=== PATIENT | male | born 1960 | race Caucasian/White ===

== ENCOUNTER 2017-10-27 10:04 | Inpatient (IN) | payer OTHER ==
[2017-10-27 10:59] LABS: ADD MAN DIFF? NO
[2017-10-27 11:04] LABS: BASOPHILS % 0.6 % (0.0-2.0); EOSINOPHILS # 0.1 10^3/ul (0.0-0.5); EOSINOPHILS % 1.1 % (0.0-7.0); HEMATOCRIT 41.3 % (42.0-52.0); HEMOGLOBIN 13.9 g/dl (14.0-18.0); LYMPHOCYTES # 1.4 10^3/ul (0.8-2.9); LYMPHOCYTES % 25.4 % (15.0-51.0); MEAN CORPUSCULAR HGB CONC 33.7 g/dl (32.0-37.0); MONOCYTE # 0.5 10^3/ul (0.3-0.9); MONOCYTES % 8.5 % (0.0-11.0); NEUTROPHIL # 3.5 10^3/ul (1.6-7.5); NEUTROPHILS % 64.2 % (39.0-77.0); PLATELET COUNT 194 10^3/UL (140-415); RED BLOOD COUNT 4.49 10^6/ul (4.70-6.10); RED CELL DISTRIBUTION WIDTH 12.7 % (11.5-14.5)
[2017-10-27 11:04] LABS: WHITE BLOOD COUNT 5.4 10^3/ul (4.8-10.8)
[2017-10-27 11:06] LABS: ADD UMIC NO; UR ASCORBIC ACID 20 mg/dL (NEGATIVE); UR BILIRUBIN (Dip) NEGATIVE (NEGATIVE); UR BLOOD (Dip) NEGATIVE (NEGATIVE); UR CLARITY CLEAR (CLEAR); UR COLOR YELLOW (YELLOW); UR GLUCOSE (Dip) NEGATIVE (NEGATIVE); UR KETONES (Dip) NEGATIVE (NEGATIVE); UR LEUKOCYTE ESTERASE (Dip) NEGATIVE Leu/ul (NEGATIVE); UR NITRITE (Dip) NEGATIVE (NEGATIVE); UR SPECIFIC GRAVITY (Dip) 1.015 (1.003-1.030); UR TOTAL PROTEIN (Dip) NEGATIVE (NEGATIVE); UR UROBILINOGEN (Dip) NEGATIVE (NEGATIVE)
[2017-10-27 11:25] LABS: ANION GAP 20 (8-16); BLOOD UREA NITROGEN 23 mg/dl (7-20); CALCIUM 9.2 mg/dl (8.4-10.2); CARBON DIOXIDE 27 mmol/L (21-31); CHLORIDE 101 mmol/L (97-110); CHOL/HDL RATIO 3.3 RATIO; CHOLESTEROL 90 mg/dl (100-200); CREATININE 1.23 mg/dl (0.61-1.24); GLUCOSE 148 mg/dl (70-220); HDL CHOLESTEROL 27 mg/dl (28-71); LDL CHOLESTEROL,CALCULATED 42 mg/dl; SODIUM 144 mmol/L (135-144); TRIGLYCERIDES 105 mg/dl (0-149)
[2017-10-27 11:28] LABS: AMPHETAMINE/METHAMPHETAMINE Negative (NEGATIVE); BARBITURATES Negative (NEGATIVE); BENZODIAZEPINES Negative (NEGATIVE); CANNABINOIDS Negative (NEGATIVE); COCAINE Negative (NEGATIVE); OPIATES Negative (NEGATIVE)
[2017-10-27 11:36] LABS: INR 1.01; PROTIME 13.4 Sec (11.9-14.9)
[2017-10-27 11:37] LABS: PARTIAL THROMBOPLASTIN TIME 26.6 Sec (25.0-35.0)
[2017-10-27 11:42] LABS: TROPONIN-I < 0.012 ng/ml (0.00-0.12)
[2017-10-27 12:03] LABS: HEMOGLOBIN A1C 5.9 % (0-5.9)
[2017-10-27] MEDS: ASPIRIN 81 MG TAB PO (13:29)
[2017-10-27] MEDS ORDERED: ACETAMINOPHEN 325 MG TAB PO ×2 (13:30→14:30)
[2017-10-27] MEDS ORDERED: ONDANSETRON 4 MG INJ IV ×2 (13:30→14:30)
[2017-10-27] MEDS ORDERED: NACL 0.9% 3 ML SYG IV (14:30)
[2017-10-27] MEDS ORDERED: GLUCOSE GEL 15 GRAM TUBE BUCCAL (14:30)
[2017-10-27] MEDS ORDERED: GLUCAGON 1 MG INJ IM (14:30)
[2017-10-27] MEDS ORDERED: GLUCOSE GEL 15 GRAM TUBE PO ×2 (14:30)
[2017-10-27] MEDS ORDERED: DEXTROSE 50% 50 ML SYRINGE IV ×2 (14:30)
[2017-10-27] MEDS ORDERED: DOCUSATE SODIUM 100 MG CAP PO (14:30)
[2017-10-27] MEDS: INSULIN ASPART [NOVOLOG] 3 ML PEN SC ×2 (17:53→21:01)
[2017-10-27] MEDS ORDERED: ATORVASTATIN 40 MG TAB PO (21:00)
[2017-10-27] MEDS: ATORVASTATIN 20 MG TAB PO (22:19)
[2017-10-28] MEDS: INSULIN ASPART [NOVOLOG] 3 ML PEN SC ×2 (07:55→12:31)
[2017-10-28] MEDS: ASPIRIN 81 MG TAB PO (08:39)
[2017-10-28] MEDS: LORATADINE 10 MG TAB PO (08:39)
[2017-10-28] MEDS: FENOFIBRATE 145 MG TAB PO (08:39)
[2017-10-28] MEDS: BENAZEPRIL 40 MG TAB PO (12:27)
[2017-10-28] MEDS: hydrALAzine 20 MG INJ IV (15:00)
[2017-10-28] MEDS: HYDROCHLOROTHIAZIDE 25 MG TAB PO (15:20)
[2017-10-28] MEDS ORDERED: AMLODIPINE 5 MG TAB PO (21:00)
[2017-10-29] MEDS ORDERED: HYDROCHLOROTHIAZIDE 25 MG TAB PO (09:00)
== END 2017-10-28 16:08 | disposition home or self-care (01) | DRG 69 ==
LOC: E/R 10:04 → TEL 13:05
DX: G45.9 Transient cerebral ischemic attack, unspecified (principal); I10 Essential (primary) hypertension; E11.9 Type 2 diabetes mellitus without complications; E78.5 Hyperlipidemia, unspecified
CPT/HCPCS: 36415; 70450; 70546; 70553; 71045; 80048; 80061; 80307; 81003; 82962; 83036; 84484; 85025; 85610; 85730; 93005; 93880; 99285-25

== ENCOUNTER 2018-09-10 10:00 | Inpatient (IN) | payer OTHER ==
[~2018-09-10 10:00] MED LIST: CEFAZOLIN 1 GM INJ; ROCURONIUM 50 MG INJ
[2018-09-10] MEDS ORDERED: PROPOFOL 20 ML (13:14)
[2018-09-10] MEDS ORDERED: MIDAZOLAM 1 MG/ML 2 ML INJ (13:14)
[2018-09-10] MEDS ORDERED: METOCLOPRAMIDE 10 MG INJ (13:15)
[2018-09-10] MEDS ORDERED: ROPIVACAINE 0.5 % 30 ML VIAL (13:15)
[2018-09-10] MEDS ORDERED: ONDANSETRON 4 MG INJ (13:15)
[2018-09-10] MEDS: POLYMYXIN/BACITRACIN 1L IRRIG (13:27)
[2018-09-10] MEDS ORDERED: hydrALAzine 20 MG INJ IV (13:30)
[2018-09-10] MEDS ORDERED: MEPERIDINE 25 MG INJ IV (13:30)
[2018-09-10] MEDS ORDERED: ONDANSETRON 4 MG INJ IV (13:30)
[2018-09-10] MEDS ORDERED: HYDROmorphONE 1 MG/5 ML IV SYRINGE IV ×3 (13:30)
[2018-09-10] MEDS ORDERED: LABETALOL HCL 20MG INJ IV (13:30)
[2018-09-10] MEDS ORDERED: DIPHENHYDRAMINE 50 MG INJ IV (13:30)
[2018-09-10] MEDS: CEFAZOLIN 2 GM/50 ML (PMX) 50 ML IVPB ×3 (13:30→23:52)
[2018-09-10] MEDS ORDERED: SOD CHLORIDE 0.9% 1,000 ML IV (13:30)
[2018-09-10] MEDS ORDERED: HYDROmorphONE 2 MG/ML SYG (13:49)
[2018-09-10] MEDS ORDERED: ROCURONIUM 50 MG INJ (13:54)
[2018-09-10] MEDS ORDERED: GLYCOPYRROLATE 0.4 MG INJ (14:43)
[2018-09-10] MEDS ORDERED: NEOSTIGMINE 10 MG INJ (14:43)
[2018-09-10] MEDS: BUPIVACAINE 0.25% (MPF) 30 ML INJ (14:45)
[2018-09-10] MEDS ORDERED: NALOXONE (0.4 MG/ML) INJ IV (15:00)
[2018-09-10] MEDS ORDERED: EPHEDrine 50 MG INJ (15:03)
[2018-09-10] MEDS: HYDROmorphONE 0.2 MG/ML PCA IV (16:06)
[2018-09-10 16:11] LABS: ADD MAN DIFF? NO
[2018-09-10 16:14] LABS: WHITE BLOOD COUNT 9.8 10^3/ul (4.8-10.8)
[2018-09-10 16:14] LABS: BASOPHILS % 0.3 % (0.0-2.0); EOSINOPHILS % 0.3 % (0.0-7.0); HEMATOCRIT 39.8 % (42.0-52.0); HEMOGLOBIN 13.3 g/dl (14.0-18.0); LYMPHOCYTES # 1.5 10^3/ul (0.8-2.9); LYMPHOCYTES % 15.5 % (15.0-51.0); MEAN CORPUSCULAR HEMOGLOBIN 31.6 pg (29.0-33.0); MEAN CORPUSCULAR HGB CONC 33.4 g/dl (32.0-37.0); MEAN CORPUSCULAR VOLUME 94.5 fl (82.0-101.0); MEAN PLATELET VOLUME 10.8 fl (7.4-10.4); MONOCYTE # 0.6 10^3/ul (0.3-0.9); MONOCYTES % 5.8 % (0.0-11.0); NEUTROPHIL # 7.6 10^3/ul (1.6-7.5); NEUTROPHILS % 77.6 % (39.0-77.0); PLATELET COUNT 181 10^3/UL (140-415); RED BLOOD COUNT 4.21 10^6/ul (4.70-6.10)
[2018-09-10 16:32] LABS: ALANINE AMINOTRANSFERASE 31 IU/L (13-69); ALBUMIN 4.6 g/dl (3.3-4.9); ALBUMIN/GLOBULIN RATIO 1.58; ALKALINE PHOSPHATASE 59 IU/L (42-121); ASPARTATE AMINO TRANSFERASE 29 IU/L (15-46); BILIRUBIN,INDIRECT 0.5 mg/dl (0-1.1); BILIRUBIN,TOTAL 0.5 mg/dl (0.2-1.3); BLOOD UREA NITROGEN 16 mg/dl (7-20); CALCIUM 8.6 mg/dl (8.4-10.2); CARBON DIOXIDE 25 mmol/L (21-31); CHLORIDE 106 mmol/L (97-110); CREATININE 1.02 mg/dl (0.61-1.24); Estimated GFR > 60 mL/min (>60); GLUCOSE 98 mg/dl (70-220); TOTAL PROTEIN 7.5 g/dl (6.1-8.1)
[2018-09-10 16:44] LABS: ANION GAP 15 (5-13); SODIUM 146 mmol/L (135-144)
[2018-09-10] MEDS: SOD CHLORIDE 0.9% 1,000 ML IV (20:19)
[2018-09-10] MEDS: ONDANSETRON 4 MG INJ IV (21:19)
[2018-09-10] MEDS ORDERED: GLUCOSE GEL 15 GRAM TUBE BUCCAL (22:00)
[2018-09-10] MEDS ORDERED: GLUCAGON 1 MG INJ IM (22:00)
[2018-09-10] MEDS ORDERED: DEXTROSE 50% 50 ML SYRINGE IV ×2 (22:00)
[2018-09-10] MEDS ORDERED: GLUCOSE GEL 15 GRAM TUBE PO ×2 (22:00)
[2018-09-11] MEDS: SOD CHLORIDE 0.9% 1,000 ML IV ×5 (00:50→20:50)
[2018-09-11] MEDS: ONDANSETRON 4 MG INJ IV ×3 (02:57→17:26)
[2018-09-11] MEDS: ACETAMINOPHEN 325 MG TAB PO (05:51)
[2018-09-11] MEDS: CEFAZOLIN 2 GM/50 ML (PMX) 50 ML IVPB (06:02)
[2018-09-11 07:27] LABS: ADD MAN DIFF? NO
[2018-09-11 07:31] LABS: BASOPHILS % 0.1 % (0.0-2.0); HEMOGLOBIN 12.2 g/dl (14.0-18.0); LYMPHOCYTES % 8.1 % (15.0-51.0); MEAN CORPUSCULAR HEMOGLOBIN 31.7 pg (29.0-33.0); MEAN CORPUSCULAR HGB CONC 33.9 g/dl (32.0-37.0); MEAN CORPUSCULAR VOLUME 93.5 fl (82.0-101.0); MEAN PLATELET VOLUME 10.9 fl (7.4-10.4); MONOCYTE # 0.9 10^3/ul (0.3-0.9); MONOCYTES % 7.4 % (0.0-11.0); NEUTROPHILS % 83.9 % (39.0-77.0); PLATELET COUNT 174 10^3/UL (140-415); RED BLOOD COUNT 3.85 10^6/ul (4.70-6.10); RED CELL DISTRIBUTION WIDTH 12.9 % (11.5-14.5)
[2018-09-11 07:48] LABS: ALANINE AMINOTRANSFERASE 26 IU/L (13-69); ALBUMIN 4.1 g/dl (3.3-4.9); ALBUMIN/GLOBULIN RATIO 1.46; ALKALINE PHOSPHATASE 56 IU/L (42-121); ANION GAP 12 (5-13); ASPARTATE AMINO TRANSFERASE 24 IU/L (15-46); BILIRUBIN,INDIRECT 0.7 mg/dl (0-1.1); BILIRUBIN,TOTAL 0.7 mg/dl (0.2-1.3); BLOOD UREA NITROGEN 13 mg/dl (7-20); CALCIUM 8.3 mg/dl (8.4-10.2); CARBON DIOXIDE 26 mmol/L (21-31); CHLORIDE 101 mmol/L (97-110); CREATININE 0.85 mg/dl (0.61-1.24); Estimated GFR > 60 mL/min (>60); GLUCOSE 127 mg/dl (70-220); POTASSIUM 3.7 mmol/L (3.5-5.1); SODIUM 139 mmol/L (135-144); TOTAL PROTEIN 6.9 g/dl (6.1-8.1)
[2018-09-11] MEDS: BENAZEPRIL 40 MG TAB PO (08:25)
[2018-09-11] MEDS: ASPIRIN (EC) 81 MG TAB PO (08:26)
[2018-09-11] MEDS: metFORMIN 850 MG TAB PO ×3 (08:29→17:30)
[2018-09-11] MEDS: FENOFIBRATE 145 MG TAB PO (08:30)
[2018-09-11] MEDS: INSULIN ASPART [NOVOLOG] 3 ML PEN SC ×4 (08:35→21:00)
[2018-09-11] MEDS ORDERED: morphine 2 MG INJ IV (13:30)
[2018-09-11] MEDS: AMLODIPINE 5 MG TAB PO (21:05)
[2018-09-11] MEDS: ATORVASTATIN 10 MG TAB PO (21:05)
[2018-09-12] MEDS: KETOROLAC 15 MG INJ IV ×2 (02:09→12:44)
[2018-09-12] MEDS: SOD CHLORIDE 0.9% 1,000 ML IV ×2 (04:55→06:50)
[2018-09-12 06:40] LABS: ADD MAN DIFF? NO
[2018-09-12 06:56] LABS: BASOPHILS % 0.1 % (0.0-2.0); HEMATOCRIT 28.9 % (42.0-52.0); HEMOGLOBIN 9.9 g/dl (14.0-18.0); LYMPHOCYTES % 9.3 % (15.0-51.0); MEAN CORPUSCULAR HEMOGLOBIN 31.9 pg (29.0-33.0); MEAN CORPUSCULAR HGB CONC 34.3 g/dl (32.0-37.0); MEAN CORPUSCULAR VOLUME 93.2 fl (82.0-101.0); MEAN PLATELET VOLUME 11.1 fl (7.4-10.4); MONOCYTE # 1.1 10^3/ul (0.3-0.9); MONOCYTES % 10.9 % (0.0-11.0); NEUTROPHIL # 8.1 10^3/ul (1.6-7.5); NEUTROPHILS % 79.1 % (39.0-77.0); PLATELET COUNT 156 10^3/UL (140-415); RED CELL DISTRIBUTION WIDTH 12.9 % (11.5-14.5)
[2018-09-12 06:56] LABS: WHITE BLOOD COUNT 10.2 10^3/ul (4.8-10.8)
[2018-09-12 07:26] LABS: ANION GAP 8 (5-13); BLOOD UREA NITROGEN 15 mg/dl (7-20); CALCIUM 7.9 mg/dl (8.4-10.2); CARBON DIOXIDE 27 mmol/L (21-31); CHLORIDE 104 mmol/L (97-110); CREATININE 0.93 mg/dl (0.61-1.24); Estimated GFR > 60 mL/min (>60); GLUCOSE 124 mg/dl (70-220); POTASSIUM 3.7 mmol/L (3.5-5.1); SODIUM 139 mmol/L (135-144)
[2018-09-12] MEDS: FENOFIBRATE 145 MG TAB PO (09:01)
[2018-09-12] MEDS: BENAZEPRIL 40 MG TAB PO (09:01)
[2018-09-12] MEDS: metFORMIN 850 MG TAB PO ×2 (09:01→12:43)
[2018-09-12] MEDS: ASPIRIN (EC) 81 MG TAB PO (09:01)
[2018-09-12] MEDS: INSULIN ASPART [NOVOLOG] 3 ML PEN SC ×2 (09:05→12:00)
== END 2018-09-12 13:35 | disposition home or self-care (01) | DRG 355 ==
LOC: SDS 10:00 → REC 14:52 → SDS 14:52 → 5EC 16:18
PROVIDERS: Surgery
PROC: 0WUF0JZ Supplement Abdominal Wall with Synthetic Substitute, Open Approach (ICD-10-PCS; principal; 2018-09-10 13:15)
PROC: 0KXL0Z2 Transfer Left Abdomen Muscle with Skin and Subcutaneous Tissue, Open Approach (ICD-10-PCS; 2018-09-10 13:15)
PROC: 0KXK0Z2 Transfer Right Abdomen Muscle with Skin and Subcutaneous Tissue, Open Approach (ICD-10-PCS; 2018-09-10 13:15)
DX: K42.0 Umbilical hernia with obstruction, without gangrene (principal); E11.9 Type 2 diabetes mellitus without complications; I10 Essential (primary) hypertension; E78.5 Hyperlipidemia, unspecified; Z79.4 Long term (current) use of insulin; Z79.82 Long term (current) use of aspirin; Z86.73 Personal history of transient ischemic attack (TIA), and cerebral infarction without residual deficits
CPT/HCPCS: 80048; 80053; 82962; 85025

== ENCOUNTER 2018-09-15 13:56 | Inpatient (IN) | payer OTHER ==
[2018-09-15 16:33] LABS: ADD MAN DIFF? NO
[2018-09-15 16:37] LABS: ABNORMAL IP MESSAGE 1; BASOPHILS % 0.1 % (0.0-2.0); HEMATOCRIT 19.2 % (42.0-52.0); LYMPHOCYTES # 1.2 10^3/ul (0.8-2.9); LYMPHOCYTES % 12.2 % (15.0-51.0); MEAN CORPUSCULAR HGB CONC 32.8 g/dl (32.0-37.0); MEAN CORPUSCULAR VOLUME 97.5 fl (82.0-101.0); MEAN PLATELET VOLUME 10.7 fl (7.4-10.4); MONOCYTE # 1.1 10^3/ul (0.3-0.9); MONOCYTES % 10.9 % (0.0-11.0); NEUTROPHIL # 7.3 10^3/ul (1.6-7.5); NEUTROPHILS % 75.8 % (39.0-77.0); NUCLEATED RED BLOOD CELLS # 0.1 10^3/ul (0.0-0.0); PLATELET COUNT 235 10^3/UL (140-415); POSITIVE DIFF @See below; RED BLOOD COUNT 1.97 10^6/ul (4.70-6.10); RED CELL DISTRIBUTION WIDTH 13.2 % (11.5-14.5)
[2018-09-15 16:37] LABS: WHITE BLOOD COUNT 9.7 10^3/ul (4.8-10.8)
[2018-09-15] MEDS: SOD CHLORIDE 0.9% 1,000 ML IV ×2 (16:39→22:44)
[2018-09-15] MEDS: ONDANSETRON 4 MG INJ IV ×2 (16:39→21:53)
[2018-09-15 16:46] LABS: HEMOGLOBIN 6.3 g/dl (14.0-18.0)
[2018-09-15 16:47] LABS: PATH REVIEW? YES
[2018-09-15 16:54] LABS: ALANINE AMINOTRANSFERASE 22 IU/L (13-69); ALBUMIN/GLOBULIN RATIO 1.33; ALKALINE PHOSPHATASE 55 IU/L (42-121); ANION GAP 17 (5-13); ASPARTATE AMINO TRANSFERASE 30 IU/L (15-46); BILIRUBIN,INDIRECT 1.5 mg/dl (0-1.1); BILIRUBIN,TOTAL 1.5 mg/dl (0.2-1.3); BLOOD UREA NITROGEN 31 mg/dl (7-20); CALCIUM 8.7 mg/dl (8.4-10.2); CARBON DIOXIDE 33 mmol/L (21-31); CHLORIDE 94 mmol/L (97-110); CREATININE 0.99 mg/dl (0.61-1.24); Estimated GFR > 60 mL/min (>60); GLUCOSE 142 mg/dl (70-220); LIPASE 456 U/L (23-300); POTASSIUM 3.9 mmol/L (3.5-5.1); SODIUM 144 mmol/L (135-144)
[2018-09-15 18:29] LABS: ADD UMIC YES; UR ASCORBIC ACID NEGATIVE (NEGATIVE); UR BILIRUBIN (Dip) NEGATIVE (NEGATIVE); UR BLOOD (Dip) 2+ mg/dL (NEGATIVE); UR CLARITY CLEAR (CLEAR); UR COLOR YELLOW (YELLOW); UR GLUCOSE (Dip) 1+ mg/dL (NEGATIVE); UR KETONES (Dip) TRACE mg/dL (NEGATIVE); UR LEUKOCYTE ESTERASE (Dip) NEGATIVE Leu/ul (NEGATIVE); UR NITRITE (Dip) NEGATIVE (NEGATIVE); UR RBC 1 /HPF (0-5); UR SPECIFIC GRAVITY (Dip) 1.016 (1.003-1.030); UR TOTAL PROTEIN (Dip) NEGATIVE (NEGATIVE); UR UROBILINOGEN (Dip) 1+ mg/dL (NEGATIVE); UR WBC 1 /HPF (0-5)
[2018-09-15] MEDS: FAMOTIDINE 20 MG TAB PO (18:38)
[2018-09-15] MEDS ORDERED: ACETAMINOPHEN 325 MG TAB PO ×2 (20:00→20:30)
[2018-09-15] MEDS ORDERED: morphine 2 MG INJ IV (20:30)
[2018-09-15] MEDS ORDERED: NACL 0.9% 3 ML SYG IV (20:30)
[2018-09-15] MEDS: FAMOTIDINE 20 MG INJ IV (21:52)
[2018-09-15] MEDS: SOD CHLORIDE 0.9% 0 ML IV (22:30)
[2018-09-16] MEDS: SOD CHLORIDE 0.9% 1,000 ML IV ×3 (04:22→20:54)
[2018-09-16 06:31] LABS: ADD MAN DIFF? NO
[2018-09-16 06:33] LABS: ABNORMAL IP MESSAGE 1; BASOPHILS % 0.1 % (0.0-2.0); EOSINOPHILS % 0.1 % (0.0-7.0); HEMATOCRIT 20.8 % (42.0-52.0); LYMPHOCYTES # 1.4 10^3/ul (0.8-2.9); LYMPHOCYTES % 16.7 % (15.0-51.0); MEAN CORPUSCULAR HEMOGLOBIN 31.2 pg (29.0-33.0); MEAN CORPUSCULAR HGB CONC 32.2 g/dl (32.0-37.0); MEAN CORPUSCULAR VOLUME 96.7 fl (82.0-101.0); MEAN PLATELET VOLUME 10.2 fl (7.4-10.4); MONOCYTE # 0.9 10^3/ul (0.3-0.9); MONOCYTES % 10.9 % (0.0-11.0); NEUTROPHIL # 5.7 10^3/ul (1.6-7.5); NEUTROPHILS % 70.6 % (39.0-77.0); NUCLEATED RED BLOOD CELLS # 0.1 10^3/ul (0.0-0.0); NUCLEATED RED BLOOD CELLS% 1.4 /100WBC (0.0-0.0); PLATELET COUNT 191 10^3/UL (140-415); POSITIVE DIFF @See below; RED BLOOD COUNT 2.15 10^6/ul (4.70-6.10); RED CELL DISTRIBUTION WIDTH 15.3 % (11.5-14.5)
[2018-09-16 06:33] LABS: WHITE BLOOD COUNT 8.1 10^3/ul (4.8-10.8)
[2018-09-16 06:58] LABS: HEMOGLOBIN 6.7 g/dl (14.0-18.0); PATH REVIEW? YES
[2018-09-16] MEDS ORDERED: DEXTROSE 50% 50 ML SYRINGE IV ×2 (07:00)
[2018-09-16] MEDS ORDERED: GLUCOSE GEL 15 GRAM TUBE PO ×2 (07:00)
[2018-09-16] MEDS ORDERED: GLUCOSE GEL 15 GRAM TUBE BUCCAL (07:00)
[2018-09-16] MEDS ORDERED: GLUCAGON 1 MG INJ IM (07:00)
[2018-09-16 07:15] LABS: ALANINE AMINOTRANSFERASE 22 IU/L (13-69); ALBUMIN 3.2 g/dl (3.3-4.9); ALBUMIN/GLOBULIN RATIO 1.28; ALKALINE PHOSPHATASE 45 IU/L (42-121); ANION GAP 11 (5-13); ASPARTATE AMINO TRANSFERASE 24 IU/L (15-46); BILIRUBIN,INDIRECT 1.5 mg/dl (0-1.1); BILIRUBIN,TOTAL 1.5 mg/dl (0.2-1.3); BLOOD UREA NITROGEN 23 mg/dl (7-20); CALCIUM 7.9 mg/dl (8.4-10.2); CARBON DIOXIDE 29 mmol/L (21-31); CHLORIDE 102 mmol/L (97-110); Estimated GFR > 60 mL/min (>60); GLUCOSE 103 mg/dl (70-220); POTASSIUM 4.5 mmol/L (3.5-5.1); SODIUM 142 mmol/L (135-144); TOTAL PROTEIN 5.7 g/dl (6.1-8.1)
[2018-09-16 07:56] LABS: ANISOCYTOSIS 1+ (0-0); BAND NEUTROPHILS #M 0.2 10^3/ul (0.0-0.6); BAND NEUTROPHILS % (M) 3 % (0-4); HYPOCHROMASIA 1+ (0-0); LYMPHOCYTES #M 1.1 10^3/ul (0.8-2.9); LYMPHOCYTES % (M) 14 % (15-51); MICROCYTOSIS 1+ (0-0); MONOCYTE #M 0.7 10^3/ul (0.3-0.9); MONOCYTES % (M) 9 % (0-11); PLATELET ESTIMATE NORMAL; PLATELET MORPHOLOGY COMMENT @See below; POLYCHROMASIA 2+ (0-0); RBC MORPHOLOGY COMMENT @See below; SEGMENTED NEUTROPHILS (M) % 74 % (39-77); SMUDGE%M 2 % (0-0); WBC MORPHOLOGY COMMENT @See below
[2018-09-16] MEDS: INSULIN ASPART [NOVOLOG] 3 ML PEN SC ×4 (08:00→21:00)
[2018-09-16 08:15] LABS: HEMOGLOBIN A1C 5.8 % (0-5.9)
[2018-09-16] MEDS: metFORMIN 850 MG TAB PO ×3 (08:16→17:40)
[2018-09-16] MEDS: ACCU-CHEK XX ×4 (08:29→21:00)
[2018-09-16] MEDS: LORATADINE 10 MG TAB PO (09:20)
[2018-09-16] MEDS: FAMOTIDINE 20 MG INJ IV ×2 (09:20→20:55)
[2018-09-16] MEDS: FENOFIBRATE 145 MG TAB PO (09:20)
[2018-09-16] MEDS: HYDROCHLOROTHIAZIDE 25 MG TAB PO (09:21)
[2018-09-16] MEDS: BENAZEPRIL 40 MG TAB PO (09:21)
[2018-09-16] MEDS: ENOXAPARIN 30 MG/0.3 ML SYG SC (09:26)
[2018-09-16 16:14] LABS: IMMEDIATE SPIN CROSSMATCH 1 3
[2018-09-16] MEDS: AMLODIPINE 5 MG TAB PO (20:54)
[2018-09-16] MEDS: ATORVASTATIN 10 MG TAB PO (20:54)
[2018-09-17] MEDS: ACCU-CHEK XX ×5 (02:00→21:00)
[2018-09-17] MEDS: SOD CHLORIDE 0.9% 1,000 ML IV ×3 (04:56→22:17)
[2018-09-17 06:08] LABS: ADD MAN DIFF? NO
[2018-09-17 06:29] LABS: BASOPHILS % 0.2 % (0.0-2.0); EOSINOPHILS % 0.5 % (0.0-7.0); HEMATOCRIT 27.8 % (42.0-52.0); HEMOGLOBIN 9.4 g/dl (14.0-18.0); LYMPHOCYTES # 1.4 10^3/ul (0.8-2.9); LYMPHOCYTES % 15.8 % (15.0-51.0); MEAN CORPUSCULAR HEMOGLOBIN 30.8 pg (29.0-33.0); MEAN CORPUSCULAR HGB CONC 33.8 g/dl (32.0-37.0); MEAN CORPUSCULAR VOLUME 91.1 fl (82.0-101.0); MONOCYTE # 0.9 10^3/ul (0.3-0.9); MONOCYTES % 9.9 % (0.0-11.0); NEUTROPHIL # 6.3 10^3/ul (1.6-7.5); NEUTROPHILS % 72.6 % (39.0-77.0); NUCLEATED RED BLOOD CELLS # 0.1 10^3/ul (0.0-0.0); NUCLEATED RED BLOOD CELLS% 0.9 /100WBC (0.0-0.0); PLATELET COUNT 201 10^3/UL (140-415); RED BLOOD COUNT 3.05 10^6/ul (4.70-6.10); RED CELL DISTRIBUTION WIDTH 15.3 % (11.5-14.5)
[2018-09-17 06:29] LABS: WHITE BLOOD COUNT 8.7 10^3/ul (4.8-10.8)
[2018-09-17 07:02] LABS: ANION GAP 6 (5-13); BLOOD UREA NITROGEN 17 mg/dl (7-20); CARBON DIOXIDE 28 mmol/L (21-31); CHLORIDE 101 mmol/L (97-110); CREATININE 0.85 mg/dl (0.61-1.24); Estimated GFR > 60 mL/min (>60); GLUCOSE 91 mg/dl (70-220); POTASSIUM 3.7 mmol/L (3.5-5.1); SODIUM 135 mmol/L (135-144)
[2018-09-17] MEDS: INSULIN ASPART [NOVOLOG] 3 ML PEN SC ×4 (08:00→20:47)
[2018-09-17] MEDS: BENAZEPRIL 40 MG TAB PO (08:45)
[2018-09-17] MEDS: HYDROCHLOROTHIAZIDE 25 MG TAB PO (08:46)
[2018-09-17] MEDS: FENOFIBRATE 145 MG TAB PO (08:46)
[2018-09-17] MEDS: metFORMIN 850 MG TAB PO ×3 (08:47→17:44)
[2018-09-17] MEDS: FAMOTIDINE 20 MG INJ IV (08:48)
[2018-09-17] MEDS: LORATADINE 10 MG TAB PO (08:48)
[2018-09-17] MEDS: ENOXAPARIN 30 MG/0.3 ML SYG SC (08:50)
[2018-09-17] MEDS: ONDANSETRON 4 MG INJ IV (20:33)
[2018-09-17] MEDS: FAMOTIDINE 20 MG TAB PO (20:33)
[2018-09-17] MEDS: AMLODIPINE 5 MG TAB PO (20:34)
[2018-09-17] MEDS: ATORVASTATIN 10 MG TAB PO (20:34)
[2018-09-18 00:42] LABS: OCCULT BLOOD STOOL NEGATIVE (NEGATIVE)
[2018-09-18] MEDS: ACCU-CHEK XX ×5 (02:00→21:00)
[2018-09-18] MEDS: SOD CHLORIDE 0.9% 1,000 ML IV ×4 (04:22→21:18)
[2018-09-18 07:42] LABS: ADD MAN DIFF? NO
[2018-09-18 07:45] LABS: BASOPHILS % 0.3 % (0.0-2.0); EOSINOPHILS # 0.1 10^3/ul (0.0-0.5); EOSINOPHILS % 0.7 % (0.0-7.0); HEMATOCRIT 27.7 % (42.0-52.0); HEMOGLOBIN 9.4 g/dl (14.0-18.0); LYMPHOCYTES # 1.1 10^3/ul (0.8-2.9); LYMPHOCYTES % 14.2 % (15.0-51.0); MEAN CORPUSCULAR HEMOGLOBIN 31.1 pg (29.0-33.0); MEAN CORPUSCULAR HGB CONC 33.9 g/dl (32.0-37.0); MEAN CORPUSCULAR VOLUME 91.7 fl (82.0-101.0); MEAN PLATELET VOLUME 9.9 fl (7.4-10.4); MONOCYTE # 0.9 10^3/ul (0.3-0.9); MONOCYTES % 11.9 % (0.0-11.0); NEUTROPHIL # 5.5 10^3/ul (1.6-7.5); NEUTROPHILS % 72.2 % (39.0-77.0); PLATELET COUNT 232 10^3/UL (140-415); RED BLOOD COUNT 3.02 10^6/ul (4.70-6.10); RED CELL DISTRIBUTION WIDTH 14.9 % (11.5-14.5)
[2018-09-18 07:45] LABS: WHITE BLOOD COUNT 7.5 10^3/ul (4.8-10.8)
[2018-09-18] MEDS: INSULIN ASPART [NOVOLOG] 3 ML PEN SC ×4 (08:00→21:00)
[2018-09-18 08:17] LABS: ANION GAP 8 (5-13); BLOOD UREA NITROGEN 13 mg/dl (7-20); CALCIUM 8.1 mg/dl (8.4-10.2); CARBON DIOXIDE 26 mmol/L (21-31); CHLORIDE 103 mmol/L (97-110); CREATININE 0.79 mg/dl (0.61-1.24); Estimated GFR > 60 mL/min (>60); GLUCOSE 91 mg/dl (70-220); POTASSIUM 3.6 mmol/L (3.5-5.1); SODIUM 137 mmol/L (135-144)
[2018-09-18] MEDS: FENOFIBRATE 145 MG TAB PO (08:36)
[2018-09-18] MEDS: BENAZEPRIL 40 MG TAB PO (08:36)
[2018-09-18] MEDS: HYDROCHLOROTHIAZIDE 25 MG TAB PO (08:36)
[2018-09-18] MEDS: LORATADINE 10 MG TAB PO (08:36)
[2018-09-18] MEDS: FAMOTIDINE 20 MG TAB PO (08:37)
[2018-09-18] MEDS: metFORMIN 850 MG TAB PO ×3 (08:37→17:38)
[2018-09-18] MEDS: ENOXAPARIN 30 MG/0.3 ML SYG SC (08:39)
[2018-09-18] MEDS: LOPERAMIDE 2 MG CAP PO (21:17)
[2018-09-18] MEDS: AMLODIPINE 5 MG TAB PO (21:17)
[2018-09-18] MEDS: ATORVASTATIN 10 MG TAB PO (21:17)
[2018-09-18] MEDS: metroNIDAZOLE 500 MG/NS (PMX) 100 ML IVPB (21:20)
[2018-09-19] MEDS: LOPERAMIDE 2 MG CAP PO (01:22)
[2018-09-19] MEDS: ACCU-CHEK XX ×5 (01:40→20:42)
[2018-09-19] MEDS: SOD CHLORIDE 0.9% 1,000 ML IV ×4 (04:22→20:22)
[2018-09-19] MEDS: metroNIDAZOLE 500 MG/NS (PMX) 100 ML IVPB ×3 (05:25→21:43)
[2018-09-19] MEDS: PANTOPRAZOLE 40 MG INJ IV (05:29)
[2018-09-19] MEDS: INSULIN ASPART [NOVOLOG] 3 ML PEN SC ×4 (07:51→20:41)
[2018-09-19] MEDS: LORATADINE 10 MG TAB PO (08:23)
[2018-09-19] MEDS: FENOFIBRATE 145 MG TAB PO (08:24)
[2018-09-19] MEDS: BENAZEPRIL 40 MG TAB PO (08:24)
[2018-09-19] MEDS: HYDROCHLOROTHIAZIDE 25 MG TAB PO (08:24)
[2018-09-19] MEDS: metFORMIN 850 MG TAB PO ×3 (08:25→17:33)
[2018-09-19] MEDS: ATORVASTATIN 10 MG TAB PO (20:41)
[2018-09-19] MEDS: AMLODIPINE 5 MG TAB PO (20:42)
[2018-09-19] MEDS: ONDANSETRON 4 MG INJ IV (23:00)
[2018-09-20] MEDS: ACCU-CHEK XX ×3 (02:00→11:58)
[2018-09-20] MEDS: metroNIDAZOLE 500 MG/NS (PMX) 100 ML IVPB ×2 (05:41→13:26)
[2018-09-20] MEDS: PANTOPRAZOLE 40 MG INJ IV (05:41)
[2018-09-20] MEDS: SOD CHLORIDE 0.9% 1,000 ML IV ×2 (05:42→14:00)
[2018-09-20 06:08] LABS: ADD MAN DIFF? NO
[2018-09-20 06:19] LABS: BASOPHILS % 0.3 % (0.0-2.0); EOSINOPHILS # 0.1 10^3/ul (0.0-0.5); EOSINOPHILS % 1.8 % (0.0-7.0); HEMATOCRIT 29.9 % (42.0-52.0); HEMOGLOBIN 9.9 g/dl (14.0-18.0); LYMPHOCYTES # 1.4 10^3/ul (0.8-2.9); LYMPHOCYTES % 17.9 % (15.0-51.0); MEAN CORPUSCULAR HEMOGLOBIN 31.1 pg (29.0-33.0); MEAN CORPUSCULAR HGB CONC 33.1 g/dl (32.0-37.0); MEAN PLATELET VOLUME 9.7 fl (7.4-10.4); MONOCYTE # 0.9 10^3/ul (0.3-0.9); MONOCYTES % 11.3 % (0.0-11.0); NEUTROPHIL # 5.4 10^3/ul (1.6-7.5); NEUTROPHILS % 68.1 % (39.0-77.0); PLATELET COUNT 224 10^3/UL (140-415); RED BLOOD COUNT 3.18 10^6/ul (4.70-6.10); RED CELL DISTRIBUTION WIDTH 15.4 % (11.5-14.5)
[2018-09-20 06:44] LABS: ANION GAP 11 (5-13); BLOOD UREA NITROGEN 13 mg/dl (7-20); CALCIUM 8.4 mg/dl (8.4-10.2); CARBON DIOXIDE 26 mmol/L (21-31); CHLORIDE 101 mmol/L (97-110); CREATININE 0.76 mg/dl (0.61-1.24); Estimated GFR > 60 mL/min (>60); GLUCOSE 87 mg/dl (70-220); POTASSIUM 3.7 mmol/L (3.5-5.1); SODIUM 138 mmol/L (135-144)
[2018-09-20] MEDS: INSULIN ASPART [NOVOLOG] 3 ML PEN SC ×2 (07:59→11:58)
[2018-09-20] MEDS: metFORMIN 850 MG TAB PO ×2 (08:21→11:58)
[2018-09-20] MEDS: FENOFIBRATE 145 MG TAB PO (08:21)
[2018-09-20] MEDS: LORATADINE 10 MG TAB PO (08:21)
[2018-09-20] MEDS: HYDROCHLOROTHIAZIDE 25 MG TAB PO (08:22)
[2018-09-20] MEDS: BENAZEPRIL 40 MG TAB PO (08:22)
== END 2018-09-20 15:25 | disposition home or self-care (01) | DRG 920 ==
LOC: E/R 13:56 → PP2 19:54
PROC: 30233N1 Transfusion of Nonautologous Red Blood Cells into Peripheral Vein, Percutaneous Approach (ICD-10-PCS; 2018-09-15)
PROC: 30233N1 Transfusion of Nonautologous Red Blood Cells into Peripheral Vein, Percutaneous Approach (ICD-10-PCS; principal; 2018-09-16)
DX: L76.32 Postprocedural hematoma of skin and subcutaneous tissue following other procedure (principal); D62 Acute posthemorrhagic anemia; E11.9 Type 2 diabetes mellitus without complications; E86.0 Dehydration; R19.7 Diarrhea, unspecified; I10 Essential (primary) hypertension; E78.5 Hyperlipidemia, unspecified; Y84.8 Other medical procedures as the cause of abnormal reaction of the patient, or of later complication, without mention of misadventure at the time of the procedure; Y92.019 Unspecified place in single-family (private) house as the place of occurrence of the external cause; Z79.4 Long term (current) use of insulin; Z79.82 Long term (current) use of aspirin
CPT/HCPCS: 36415; 36430; 80048; 80053; 81001; 82270; 82962; 83036; 83690; 85025; 86850; 86900; 86901; 86920; 87075; 87081; 96361; 96374; 99291-25; G0378

== ENCOUNTER 2018-10-15 14:45 | Emergency (ER) | payer OTHER ==
[2018-10-15 16:54] LABS: WHITE BLOOD COUNT 6.3 10^3/ul (4.8-10.8)
[2018-10-15 16:54] LABS: HEMATOCRIT 38.5 % (42.0-52.0); HEMOGLOBIN 12.7 g/dl (14.0-18.0); MEAN CORPUSCULAR HEMOGLOBIN 31.1 pg (29.0-33.0); MEAN CORPUSCULAR VOLUME 94.1 fl (82.0-101.0); MEAN PLATELET VOLUME 10.3 fl (7.4-10.4); PLATELET COUNT 171 10^3/UL (140-415); POSITIVE DIFF @See below; RED BLOOD COUNT 4.09 10^6/ul (4.70-6.10); RED CELL DISTRIBUTION WIDTH 13.8 % (11.5-14.5)
[2018-10-15] MEDS: ALBUTEROL/IPRATROPIUM (NEB) 3 ML AMP HHN (16:59)
[2018-10-15 17:03] LABS: ADD MAN DIFF? YES
[2018-10-15 17:16] LABS: ALANINE AMINOTRANSFERASE 27 IU/L (13-69); ALBUMIN 4.5 g/dl (3.3-4.9); ALBUMIN/GLOBULIN RATIO 1.28; ALKALINE PHOSPHATASE 74 IU/L (42-121); ANION GAP 8 (5-13); ASPARTATE AMINO TRANSFERASE 34 IU/L (15-46); BILIRUBIN,INDIRECT 0.5 mg/dl (0-1.1); BILIRUBIN,TOTAL 0.5 mg/dl (0.2-1.3); BLOOD UREA NITROGEN 12 mg/dl (7-20); CALCIUM 9.6 mg/dl (8.4-10.2); CARBON DIOXIDE 29 mmol/L (21-31); CHLORIDE 103 mmol/L (97-110); CREATININE 0.86 mg/dl (0.61-1.24); Estimated GFR > 60 mL/min (>60); GLUCOSE 98 mg/dl (70-220); POTASSIUM 4.7 mmol/L (3.5-5.1); SODIUM 140 mmol/L (135-144)
[2018-10-15 18:50] LABS: BAND NEUTROPHILS #M 0.1 10^3/ul (0.0-0.6); BAND NEUTROPHILS % (M) 2 % (0-4); BASOPHILS % (M) 1 % (0-2); EOSINOPHILS % (M) 1 % (0-7); GIANT THROMBO% (M) 1 % (0-0); LYMPHOCYTES #M 1.5 10^3/ul (0.8-2.9); LYMPHOCYTES % (M) 24 % (15-51); MONOCYTE #M 0.1 10^3/ul (0.3-0.9); MONOCYTES % (M) 2 % (0-11); PLATELET ESTIMATE NORMAL; REACTIVE LYMPHOCYTES #M 0.1 10^3/ul (0.0-0.0); REACTIVE LYMPHOCYTES% (M) 3 % (0-0); SEG NEUT #M 4.2 10^3/ul (1.6-7.5); SEGMENTED NEUTROPHILS (M) % 67 % (39-77); SMUDGE%M 2 % (0-0)
== END 2018-10-15 20:06 | disposition home or self-care (01) ==
LOC: FTE 14:45
DX: J45.901 Unspecified asthma with (acute) exacerbation (principal); I10 Essential (primary) hypertension; Z79.84 Long term (current) use of oral hypoglycemic drugs
CPT/HCPCS: 36415; 71046; 80053; 85025; 94664; 99284-25